=== PATIENT | male | born 1965 | race Two or more races ===

== ENCOUNTER → 2019-04-02 | Outpatient (CLI) | payer OTHER | END | disposition home or self-care (01) | LOC: NUCLEAR 07:00 | DX: I10 Essential (primary) hypertension (principal) ==

== ENCOUNTER 2019-10-11 10:17 | Outpatient (CLI) | payer OTHER | END 2019-10-11 10:23 | disposition home or self-care (01) | LOC: LAB 10:17 | DX: R05 Cough (principal); R06.2 Wheezing; J09.X9 Influenza due to identified novel influenza A virus with other manifestations ==

== ENCOUNTER 2021-02-23 10:50 | Emergency (ER) | payer OTHER ==
[~2021-02-23] VITALS: Ht 182.9 cm; Wt 105.2 kg
[2021-02-23] MEDS ORDERED: LIPITOR40 M1 PO (11:03)
[2021-02-23] MEDS ORDERED: MICARDIS HCT 41 EACH PO (11:03)
[2021-02-23] MEDS ORDERED: TRICOR48 MG PO (11:05)
== END 2021-02-23 16:26 | disposition home or self-care (01) ==
LOC: ER 10:50
DX: R07.9 Chest pain, unspecified (principal); Z03.818 Encounter for observation for suspected exposure to other biological agents ruled out